=== PATIENT | female | born 1955 | race Caucasian/White ===

== ENCOUNTER 2018-02-18 12:53 | Day surgery (SDC) | payer MEDICARE ==
[2018-02-18] MEDS ORDERED: PROPOFOL 10 MG/ML VIAL IV ONE (12:54)
--- NOTE | 2018-02-19 13:20 | Operative Note ---
DATE OF SURGERY: 02/18/2018 OPERATION: COLONOSCOPY to the cecum with cold snare polypectomy x1 and cold biopsy forceps polypectomy x1. INDICATION: Colorectal cancer screening. Her last examination was 10 years ago. ANESTHESIA: Intravenous sedation was administered by the department of anesthesiology and included Diprivan titrated to effect. PROCEDURE: Following informed consent from this alert individual including a discussion of the risks and benefits of the procedure and an opportunity for the patient to ask questions, the patient was in the left lateral decubitus position. A digital rectal examination was performed. No abnormalities were noted. Following this, the Olympus [id number] video colonoscope was inserted into the rectum without resistance. The rectal mucosa had a normal appearance with normal folds and distensibility. The sigmoid colon had a few scattered diverticula noted. The colonoscope was advanced up through the bowel to the level of the cecum without much difficulty. Throughout the remainder of the bowel the mucosa appeared normal, the folds were normal, and the bowel was fairly well distensible. The cecum was defined by noting the appendiceal orifice and ileocecal valve. The colon preparation was good. Retroflexion in the cecum failed to demonstrate abnormalities. From the base of the cecum, the colonoscope was then withdrawn. At the base of the cecum, there was a sessile 5 mm polyp noted which was removed with cold snare polypectomy. No other changes were appreciated until the sigmoid colon was reached where a second 3 mm polyp was noted and removed with biopsy forceps. The rectum was endoscopic normal. Retroflexion in the rectum likewise was free from change. The endoscope was straightened and withdrawn. The patient tolerated the procedure well and was returned to the recovery area in stable condition. IMPRESSION: 1. A 5 mm sessile polyp at the base of the cecum removed with cold snare polypectomy. 2. A 3 mm sigmoid polyp removed with biopsy forceps. 3. Sigmoid diverticulosis. RECOMMENDATIONS: The patient was advised she should receive a copy of her pathology report at home in the next 2-3 weeks. If not, she was asked to call my office to review the results of testing today. Followup will also be with Dr. Carrillo. As always, thank you for allowing me to participate in the care of your patient. CC: Sandhya ARCHIBALD
== END 2018-02-18 16:15 | disposition home or self-care (01) ==
LOC: HOP 12:53
PROVIDERS: ATTEND Internal Medicine Gastroenterology
DX: Z12.11 Encounter for screening for malignant neoplasm of colon (principal); D12.5 Benign neoplasm of sigmoid colon; K57.90 Diverticulosis of intestine, part unspecified, without perforation or abscess without bleeding; I10 Essential (primary) hypertension; K21.9 Gastro-esophageal reflux disease without esophagitis; J44.9 Chronic obstructive pulmonary disease, unspecified; M06.9 Rheumatoid arthritis, unspecified

== ENCOUNTER 2018-08-08 19:29 | Emergency (ER) | payer MEDICARE ==
[2018-08-08 20:04] LABS: HEMATOCRIT 35.8 % (35.0-47.0); HEMOGLOBIN 11.4 gm/dl (11.6-16.0); MEAN CORPUSCULAR HGB CONC 31.8 g/dl (32-36); MEAN PLATELET VOLUME 10.5 fl (7.4-10.4); PLATELET COUNT 320 K/uL (130-400); RED BLOOD COUNT 3.73 M/uL (3.80-5.40); RED CELL DISTRIBUTION WIDTH 14.8 % (11.5-14.5); WHITE BLOOD COUNT W/O DIFF 5.1 K/uL (4.2-12.2)
[2018-08-08 20:05] LABS: MEAN CORPUSCULAR HEMOGLOBIN 30.5 pg (27-33)
--- NOTE | 2018-08-08 20:06 | Emergency Department Record ---
History of Present Illness - General Chief complaint: Weakness Stated complaint: WEAKNESS Time Seen by Provider: 08/08/18 19:49 Source: Patient Mode of Arrival: Ambulatory Limitations: No limitations - History of Present Illness Initial comments: pt has had weakness for 2 days effecting both arms. she has had a harder time gripping and has been dropping things. she has had no new problems walking or with her speech. she states she falls a lot but that is not new. she also started getting tingling in her left arm 3 hrs ago. she has no cp. she has RA. MD Complaint: Generalized weakness, Numbness -: Days(s) Location: L hand, R hand Severity: Moderate Severity scale (1-10): 5 Quality: Aching Consistency: Constant Improves with: None Worsens with: None Associated Symptoms: Denies other symptoms - [place] Coma Scale Eye Response: (4) Open spontaneously Motor Response: (6) Obeys commands Verbal Response: (5) Oriented Elizabeth Total: 15 - Symptoms of Stroke Symptoms of stroke: Muscle Weakness, Numbness - Related Data Home Medications Medication Instructions Recorded Confirmed Last Taken Naproxen [Naprosyn] 500 mg PO BID 08/08/18 08/08/18 Unknown Allergies Allergy/AdvReac Type Severity Reaction Status Date / Time Sulfa (Sulfonamide Allergy Mild HIVES Verified 06/22/16 18:38 Antibiotics) morphine AdvReac NAUSEA AND Verified 06/22/16 18:38 VOMITING Travel Screening - Travel/Exposure Within Last 30 Days Have you traveled within the last 30 days?: No Review of Systems Reviewed: No additional complaints except as noted below Constitutional: Reports: As per HPI. Denies: Chills, Fever, Malaise, Night sweats, Weakness, Weight change Eyes: Reports: As per HPI. Denies: Eye discharge, Eye pain, Photophobia, Vision change ENT: Reports: As per HPI. Denies: Congestion, Dental pain, Ear pain, Epistaxis , Hearing loss, Throat pain Respiratory: Reports: As per HPI. Denies: Cough, Dyspnea, Hemoptysis, Stridor, Wheezes Cardiovascular: Reports: As per HPI. Denies: Arrhythmia, Chest pain, Dyspnea on exertion, Edema, Murmurs, Orthopnea, Palpitations, Paroxysmal nocturnal dyspnea, Rheumatic Fever, Syncope Endocrine: Reports: As per HPI. Denies: Fatigue, Heat or cold intolerance, Polydipsia, Polyuria Gastrointestinal: Reports: As per HPI. Denies: Abdominal pain, Constipation, Diarrhea, Hematemesis, Hematochezia, Melena, Nausea, Vomiting Genitourinary: Reports: As per HPI. Denies: Abnormal menses, Discharge, Dyspareunia, Dysuria, Frequency, Hematuria, Incontinence, Retention, Urgency Musculoskeletal: Reports: As per HPI. Denies: Arthralgia, Back pain, Gout, Joint swelling, Myalgia, Neck pain Skin: Reports: As per HPI. Denies: Bruising, Change in color, Change in hair/ nails, Lesions, Pruritus, Rash Neurological: Reports: As per HPI, Numbness, Weakness. Denies: Abnormal gait, Confusion, Headache, Paresthesias, Seizure, Tingling, Tremors, Vertigo Psychiatric: Reports: As per HPI. Denies: Anxiety, Auditory hallucinations, Depression, Homicidal thoughts, Suicidal thoughts, Visual hallucinations Hematological/Lymphatic: Reports: As per HPI. Denies: Anemia, Blood Clots, Easy bleeding, Easy bruising, Swollen glands Past Medical History - SOCIAL HISTORY Smoking Status: Former smoker Alcohol Use: Occasional Drug Use: None - RESPIRATORY Hx Respiratory Disorders: Yes Hx COPD: Yes - CARDIOVASCULAR Hx Cardio Disorders: Yes Hx Hypertension: Yes - NEURO Hx Neuro Disorders: No - GI Hx GI Disorders: Yes Hx Diverticulitis: Yes Hx Reflux: Yes Hx Hiatal Hernia: Yes Hx of Polyps: Yes Comment:: diverticulosis - Hx Genitourinary Disorders: Yes Hx Bladder Problem: Yes (frequent at night) - ENDOCRINE Hx Endocrine Disorders: No - MUSCULOSKELETAL Hx Musculoskeletal Disorders: Yes Hx Arthritis: Yes (RA; knee) Hx Fibromyalgia: Yes Hx Osteoporosis: (osteopenia) Comment:: RA all joints - PSYCH Hx Psych Problems: Yes Hx Anxiety: Yes (improved) Hx Depression: Yes - HEMATOLOGY/ONCOLOGY Hx Hematology/Oncology Disorders: No Family Medical History Any Significant Family History?: Yes Hx Alcohol Use: Mother, Brother/Sister Hx Dementia: Mother Hx Diabetes: Mother Hx Heart Disease: Father Hx Stroke: Father *Stroke Comment: mini strokes Physical Exam - General General Appearance: Alert, Oriented x3, Cooperative, Mild distress - Head Head exam: Normal inspection - Eye Eye exam: Normal appearance, PERRL, EOMI Pupils: Normal accommodation - ENT ENT exam: Normal exam, Mucous membranes moist, Normal external ear exam, Normal orophraynx Ear exam: Normal external inspection. negative: External canal tenderness Nasal Exam: Normal inspection. negative: Discharge, Sinus tenderness Mouth exam: Normal external inspection, Tongue normal Teeth exam: Normal inspection. negative: Dental caries Throat exam: Normal inspection. negative: Tonsillar erythema, Tonsillar exudate - Neck Neck exam: Normal inspection, Full ROM. negative: Tenderness - Respiratory Respiratory exam: Normal lung sounds bilaterally. negative: Respiratory distress - Cardiovascular Cardiovascular Exam: Regular rate, Normal rhythm, Normal heart sounds - GI/Abdominal GI/Abdominal exam: Soft, Normal bowel sounds. negative: Tenderness - Rectal Rectal exam: Deferred - exam: Deferred - Extremities Extremities exam: Normal inspection, Full ROM, Normal capillary refill. negative: Tenderness - Back Back exam: Reports: Normal inspection, Full ROM. Denies: Muscle spasm, Rash noted, Tenderness - Neurological Neurological exam: Alert, Normal gait, Oriented X3, Reflexes normal - Psychiatric Psychiatric exam: Normal affect, Normal mood - Skin Skin exam: Dry, Intact, Normal color, Warm Course Vital Signs 08/08/18 19:41 Temperature 99.0 F Pulse Rate 82 Respiratory 20 Rate Blood Pressure 185/112 Pulse Ox 97 - Reevaluation(s) Reevaluation #1: 08/08/18 22:23 pt feels much better Medical Decision Making - Lab Data Result diagrams: 08/08/18 19:39 08/08/18 19:39 Disposition Disposition: Discharge Clinical Impression: Rheumatoid arthritis flare Disposition: Home, Self-Care Condition: (1) Good Instructions: Rheumatoid Arthritis (ED) Additional Instructions: follow up with family doctor tomorrow. return sooner if worse. rest Forms: Patient Portal Access Quality - Quality Measures Quality Measures: N/A - Blood Pressure Screening Does Patient Have Any of the Following: Active Dx of HTN Blood Pressure Classification: Hypertensive Reading Systolic Measurement: 185 Diastolic Measurement: 112 Screening for High Blood Pressure: Patient Exclusion, Hx of HTN [G9744]
[2018-08-08 20:18] LABS: BILIRUBIN,TOTAL < 0.20 mg/dL (0.2-1.0); BLOOD UREA NITROGEN 19 mg/dL (8-23); CREATININE 0.7 mg/dL (0.5-0.9); EST GLOMERULAR FILTRATION RATE > 60 mL/min
[2018-08-08 20:19] LABS: TOTAL PROTEIN 7.3 g/dL (6.6-8.7)
[2018-08-08 20:21] LABS: GLUCOSE,RANDOM 107 mg/dL (74-109)
[2018-08-08 20:23] LABS: ALB/GLOB RATIO 1.3 (1.1-1.8); ALBUMIN 4.1 g/dL (4.0-5.0); ALKALINE PHOSPHATASE 96 U/L (35-104); ALT/SGPT 13 U/L (<33); AST/SGOT 20 U/L (10.0-35.0)
[2018-08-08] MEDS ORDERED: METHYLPREDNISOLONE PF 125MG/VIAL IM ONE (21:24)
--- NOTE | 2018-08-09 10:20 | RADIOLOGY REPORT ---
DATE: 08/08/2018. EXAM: TWO-VIEW CHEST RADIOGRAPH. HISTORY: CHEST PAIN. TECHNIQUE: Two views of the chest. COMPARISON: Chest radiograph dated 10/23/2013. FINDINGS: The cardiomediastinal silhouette appears within normal size limits and is similar to the 2013 comparison. The lungs appear hyperinflated. No focal pulmonary consolidation. No pleural effusion or pneumothorax. Prominent thoracic kyphosis with a chronic, severe lower thoracic vertebral body compression fracture noted. IMPRESSION: THE LUNGS APPEAR HYPERINFLATED. NO ACUTE FOCAL PULMONARY ABNORMALITIES ARE DETECTED. JOB NUMBER: [id number] MTDD
--- NOTE | 2018-08-09 10:25 | CT SCAN REPORT ---
DATE: 08/08/2018. EXAM: NONCONTRAST CT OF THE HEAD. HISTORY: WEAKNESS. TECHNIQUE: Noncontrast CT of the head. COMPARISON: CT of the head dated 10/28/2010. FINDINGS: No midline shift, mass effect, or abnormal intra- or extra-axial fluid collection. No cerebral edema, focal mass, or intracranial hemorrhage detected. Periventricular and subcortical white matter hypoattenuation, increased from comparison. The ventricle sizes are within normal limits for the patient's age. No displaced calvarial fracture is detected. Partial opacification of the right ethmoid air cells and right maxillary sinus. IMPRESSION: 1. NO ACUTE INTRACRANIAL FINDINGS. 2. NONSPECIFIC PERIVENTRICULAR AND SUBCORTICAL WHITE MATTER HYPOATTENUATION MOST LIKELY REPRESENTS CHRONIC SMALL-VESSEL ISCHEMIC CHANGE AND HAS INCREASED SINCE 2010 CT COMPARISON. 3. RIGHT ETHMOID AIR CELL AND MAXILLARY SINUS DISEASE. JOB NUMBER: [id number] MTDD
== END 2018-08-08 22:43 | disposition home or self-care (01) ==
LOC: ER 19:29
DX: M06.842 Other specified rheumatoid arthritis, left hand (principal); M06.841 Other specified rheumatoid arthritis, right hand; R53.1 Weakness; R20.2 Paresthesia of skin; R07.9 Chest pain, unspecified; I10 Essential (primary) hypertension; J44.9 Chronic obstructive pulmonary disease, unspecified; Z87.891 Personal history of nicotine dependence
CPT/HCPCS: 70450; 71046; 80053; 84484; 85027; 93005; 93010; 96372; 99284; J2930

== ENCOUNTER 2019-05-26 12:01 | Day surgery (SDC) | payer MEDICARE ==
[2019-05-26] MEDS ORDERED: FENTANYL PF 100MCG/2ML VIAL IV ONE (12:02)
[2019-05-26] MEDS ORDERED: PROPOFOL 10 MG/ML VIAL IV ONE (12:02)
[2019-05-26] MEDS ORDERED: LIDOCAINE 2% MDV (20MG/ML) 20ML VIAL IV ONE (12:02)
--- NOTE | 2019-05-28 08:20 | Operative Note ---
OPERATION: ESOPHAGOGASTRODUODENOSCOPY with multiple biopsies. INDICATION: Iron deficiency anemia and weight loss. The patient reports that she has had a diminished appetite for the past 2 weeks. She skips breakfast and eats less during the day. She denies abdominal pain. Stool was positive for occult blood. She had a colonoscopy 1 year ago with adenomatous polyps noted. Upper endoscopy is performed at this time for further evaluation. She has a known history of hiatal hernia. She does take naproxen for pain. ANESTHESIA: Intravenous sedation was administered by the department of anesthesiology and included Diprivan titrated to effect. PROCEDURE: Following informed consent from this alert individual, including a discussion of the risks and benefits of the procedure and an opportunity for the patient to ask questions, the patient was in the left lateral decubitus position. The Olympus [id number] video endoscope was inserted into the esophagus without resistance. The proximal esophagus had a normal appearance with normal folds and distensibility. The mid esophagus likewise was free from changes. The distal esophageal segment demonstrated a smooth, well-defined squamocolumnar junction. There was a hiatal hernia noted which was moderate in size extending 3-4 cm in length. The subdiaphragmatic stomach was entered and found to be unremarkable except for some erythematous streak-like changes involving the gastric antrum. The pylorus was patent. The duodenal bulb, sweep and descending duodenum were examined in a serial fashion and found to be normal. Biopsies from the duodenum were obtained to rule out the remote possibility of celiac sprue. The endoscope was then drawn back into the stomach where retroflexion accomplished following air insufflation revealed a medium size hiatal hernia. The endoscope was then straightened. Multiple biopsies from the stomach were obtained to assess for Helicobacter pylori and check histology. The endoscope was then withdrawn back through an unremarkable-appearing esophagus and removed from the patient. Note that there was some technical difficulties with air insufflation toward the end of the procedure but as visualized, there is no bleeding or ulcerations noted throughout. RECOMMENDATION: The patient was advised to avoid naproxen at this time. Further recommendations may be forthcoming pending results of biopsy obtained today. Followup will be with Dr. Kam. If these tests prove unremarkable and the patient continues with iron deficiency, perhaps a capsule endoscopy would be of benefit. As always, thank you for allowing me to participate in the care of your patient. BARBARA
== END 2019-05-26 13:52 | disposition home or self-care (01) ==
LOC: HOP 12:01
PROVIDERS: ATTEND Internal Medicine Gastroenterology
DX: D50.9 Iron deficiency anemia, unspecified (principal); R63.4 Abnormal weight loss; R63.0 Anorexia; R19.5 Other fecal abnormalities; K21.0 Gastro-esophageal reflux disease with esophagitis; K44.9 Diaphragmatic hernia without obstruction or gangrene; K29.70 Gastritis, unspecified, without bleeding; I10 Essential (primary) hypertension; J44.9 Chronic obstructive pulmonary disease, unspecified; M06.9 Rheumatoid arthritis, unspecified
CPT/HCPCS: 43239; 00731; J3010

== ENCOUNTER 2019-09-09 08:00 | Day surgery (SDC) | payer MEDICARE ==
[~2019-09-09 08:00] MED LIST: CEFAZOLIN 2 Gram 2 GM/50 ML BAG IVPB ONE; FAMOTIDINE 20MG TABLET PO ONE; MECLIZINE 25 MG TABLET PO ONE; METOCLOPRAMIDE 10 MG TABLET PO ONE
[2019-09-09] MEDS ORDERED: MIDAZOLAM HCL 2MG/2ML VIAL IV ONE (08:01)
[2019-09-09] MEDS ORDERED: LIDOCAINE 2% MDV (20MG/ML) 20ML VIAL IV ONE (08:01)
[2019-09-09] MEDS ORDERED: PROPOFOL 10 MG/ML VIAL IV ONE (08:01)
[2019-09-09] MEDS ORDERED: DEXAMETHASONE 4 MG/ML 1ML VIAL IVP ONE (08:01)
[2019-09-09] MEDS ORDERED: ROPIVACAINE HCL (NAROPIN) /PF 5MG/ML 20ML VIAL IV ONE (08:01)
[2019-09-09 08:29] LABS: HEMATOCRIT 35.7 % (35.0-47.0)
[2019-09-09] MEDS ORDERED: RINGERS SOLUTION,LACTATED 1,000 ML IV ONE ×2 (08:40→11:30)
[2019-09-09] MEDS ORDERED: RINGERS SOLUTION,LACTATED 1,000 ML IV PRN (12:41)
[2019-09-09] MEDS ORDERED: TRAMADOL HCL 50 MG TABLET PO PRN ×2 (13:00)
[2019-09-09] MEDS ORDERED: SENNOSIDES/DOCUSATE SODIUM UD CAPSULE PO PRN (13:00)
[2019-09-09] MEDS ORDERED: AL HYDROX/MAG HYDROX 30ML UD PO PRN (13:00)
[2019-09-09] MEDS ORDERED: HYDROCODONE/APAP 5/325MG TABLET PO PRN ×2 (13:00)
[2019-09-09] MEDS ORDERED: DIPHENHYDRAMINE HCL 25 MG CAPSULE PO PRN (13:00)
[2019-09-09] MEDS ORDERED: OXYCODONE HCL/APAP 5MG/325MG TABLET PO PRN (13:00)
[2019-09-09] MEDS ORDERED: MAGNESIUM HYDROXIDE 30 ML UDC PO PRN (13:00)
[2019-09-09] MEDS ORDERED: NALOXONE 0.4 MG/1 ML VIAL IVP PRN (13:00)
[2019-09-09] MEDS ORDERED: ZOLPIDEM TARTRATE 5 MG TABLET PO PRN (13:00)
[2019-09-09] MEDS ORDERED: METOCLOPRAMIDE HCL 10 MG/2 ML VIAL IVP PRN (13:00)
[2019-09-09] MEDS ORDERED: ACETAMINOPHEN 325 MG TAB PO PRN (13:00)
[2019-09-09] MEDS ORDERED: ALBUTEROL HFA 8 GM INHALER INH PRN (13:08)
--- NOTE | 2019-09-09 13:27 | Operative Note ---
DATE OF SURGERY: 09/09/2019 SURGEON: Saturnino Cruz D.O. REFERRING PHYSICIAN: Hugh Wiggins M.D. PREOPERATIVE DIAGNOSIS: OSTEOARTHRITIS OF THE LEFT KNEE. POSTOPERATIVE DIAGNOSIS: OSTEOARTHRITIS OF THE LEFT KNEE. OPERATION: LEFT TOTAL KNEE ARTHROPLASTY. This 64-year-old female was taken to the Operating Room and placed in the supine position on the operating room table. A spinal anesthetic was administered, the left lower extremity was elevated, it was prepped with Hibiclens and draped in the usual sterile fashion. It was exsanguinated and the tourniquet was inflated to 300 mmHg. A longitudinal midline incision was made in the left knee dissecting down through the skin and subcutaneous tissue. Hemostasis was obtained with electrocautery. An arthrotomy incision was made to expose the distal femur and retractors were placed. Intracondylar drill holes were made with the intramedullary drill guide and the hamida was placed with a 5 degree valgus guide and a 9 mm cut was made in the distal femur. The sizing jig was affixed and a size 62.5 was seen to be the appropriate size, a 4-in-1 cutting block had been pinned in 3 degrees of external rotation and the appropriate cuts were made. We then directed our attention to the proximal tibia and an extramedullary alignment guide was used to cut the proximal tibia referencing a 10 mm cut off the lateral tibial plateau and the cutting block was pinned in the appropriate rotation, a 3 degree posterior slope cut was made and the wafer of bone was removed. Remnants of the menisci and osteophytes were removed from the posterior aspect of the joint. The tibia was sized to a size 71 and the stem punch was used. The wound was copiously irrigated with pulse lavage lactated Ringer's solution, soft tissue balancing was checked with the tissue tensioning device. The patella was cut and restored to anatomic height with a 34 x 7.8 mm trial, a 62.5 cruciate retaining femur trial, a 71 tibial baseplate, and a 12 mm bearing were placed as trial components. This gave us excellent range of motion with full extension and full flexion with no instability and then all trial components were removed and the wound copiously irrigated with pulse lavage lactated Ringer's solution. All bony surfaces were dried and all components were cemented. Initially the tibial baseplate was cemented into place, the tibial bearing was subsequently placed followed by the femoral component and the patellar component. Once the cement had hardened on all components the knee was again taken through range of motion with excellent stability of all components being identified. We then placed a drain through a separate stab incision, the arthrotomy incision was closed with #2 Vicryl, the subcutaneous tissue was closed with 0 Vicryl, the skin was stapled, sterile dressings applied, tourniquet released and the patient was taken to the Recovery Room in satisfactory condition. GROSS PATHOLOGY: This patient had severe full thickness medial compartment osteoarthritis and severe patellofemoral osteoarthritis as well with the lateral compartment showing Grade 2 changes. FINAL COMPONENTS INSERTED: [employer] size 62.5 cruciate retaining femoral component, 71 tibial baseplate, a 12 mm anterior stabilized E1 bearing and a 34 x 7.8 mm patella was used. JOB NUMBER: [id number] MTDD
[2019-09-09] MEDS: HYDROMORPHONE HCL 2 MG/ML VIAL IV PRN (15:04)
[2019-09-09] MEDS: ONDANSETRON HCL IV 4 MG/2 ML VIAL IVP PRN (15:04)
--- NOTE | 2019-09-09 15:44 | Rehab Evaluation ---
Patient Information - Patient Information Diagnosis: L knee DJD Ordered Treatment: PT Evaluate and Treat Status: Initial Evaluation Surgery: Yes (L knee TKA) Date of Surgery: 09/09/19 Past Medical/Surgical Hx: PAST MEDICAL/SURGICAL HISTORY Surgery to Affected Area? No Recent Surgery? Past Surgical History colonoscopy right knee replacement 2017 left elbow surgery due to broken bone tubal ligation PMH - Respiratory Hx Respiratory Disorders Yes Hx Asthma Yes: as a child Hx Chronic Obstructive Yes Pulmonary Disease (COPD) Hx Pneumonia Yes: A LONG TIME AGO PMH - Cardiovascular Hx Cardiovascular Disorders Yes Hx Hypertension Yes Exercise Tolerance Fair PMH - Neuro Hx Neurological Disorders No PMH - GI Hx Gastrointestinal Disorders Yes Hx Diverticulitis Yes Hx Gastroesophageal Reflux Yes Hx Hiatal Hernia Yes Hx Nausea/Vomiting Yes Hx Rectal Bleeding Yes: on rectal exam per pt Comment: diverticulosis PMH - Hx Genitourinary Disorders Yes Hx Age of Menopause 38 Hx Bladder Problem Yes: frequent at night PMH - Endocrine Hx Endocrine Disorders No PMH - Musculoskeletal Hx Musculoskeletal Disorders Yes Hx Arthritis Yes: RA; knee Hx Fibromyalgia Yes Hx Osteoporosis osteopenia Comment: RA all joints PMH - Psych Hx Psychiatric Problems Yes Hx Anxiety Yes: improved Hx Depression Yes PMH - Hematology/Oncology Hx Hematology/Oncology Yes Disorders Hx Anemia Yes Hx Bruising Yes: BRUISES EASILY Premorbid Status: Detail (The patient was independent with all mobility prior to surgery.) Social History: Detail (The patient lives with spouse in a 2 story house with 3 steps on the enterance and 2 railings. The patient will be living on the main level . The bathroom is equipped with: walk in shower, standard height toilet. Grab bar is present in the shower but not by the toilet. The patient has a front wheeled walker and a standard cane.) Precautions: [place], Fall, Other (WBAT on the L LE.) - Time With Patient Total Time Spent With Patient (Min): 30 Treatment Procedures: Detail (Initial Evaluation, low complexity.) Subjective Information - Subjective Information Per Patient (The patient had complaints of L knee pain level 7 using the 0-10 pain scale.) Objective Data - Mental Status Patient Orientation: Oriented x3 - Visual Perception Appears within normal limits for therapeutic activities - ROM Not within normal limits (The L knee AROM is limited s/p surgery. All other AROM is WNL.) - Strength/Tone Other (The patient's LE strength was not tested s/p surgery however is functional.) - Bed Mobility Independent (The patient was independent with supine to and from sit transfer.) - Transfers Independent (The patient was independent with sit to and from stand transfer.) - Balance Balance Sitting: Good Balance Standing: Good - Gait Detail (The patient ambulated with front wheeled walker a distance of 25 feet x 1 WBAT on L LE with supervision for safety. Pt. became nauseated and requested to return to bed.) Therapy Assessment - Therapy Assessment Detail (The patient was independent with bed mobility and transfers . Ambulation distance was limited secondary to symptoms of nausea. The patient will be seen for one to two sessions to complete inpt. PT goals.) Problem List - Problem List Physical Therapy Problem List: Detail (Decreased L LE AROM and L LE strength) Goals - Goals Physical Therapy Goals: 1) The patient will be independent with ambulation household distances WBAT on the L LE. 2) The patient will ambulate on stairs with supervision for safety using proper technique. 3) The patient will complete TKA HEP independently. Prognosis - Prognosis Good Plan - Plan Physical Therapy Plan: PT 1-2 sessions for gait training on levels and stairs and instruction in HEP.
[2019-09-09] MEDS ORDERED: FONDAPARINUX 2.5 MG/0.5 ML SYR SQ SCH (20:00)
[2019-09-09] MEDS: CEFAZOLIN 2 Gram 2 GM/50 ML BAG IVPB SCH (20:09)
[2019-09-09] MEDS: OXYCODONE HCL/APAP 5MG/325MG TABLET PO PRN (20:09)
[2019-09-09] MEDS: ASPIRIN 325 MG TAB ENTERIC-COATED PO SCH (22:09)
[2019-09-10] MEDS: OXYCODONE HCL/APAP 5MG/325MG TABLET PO PRN ×2 (02:06→08:02)
[2019-09-10] MEDS: CEFAZOLIN 2 Gram 2 GM/50 ML BAG IVPB SCH ×2 (02:07→11:29)
[2019-09-10] MEDS ORDERED: PANTOPRAZOLE SODIUM 40 MG TABLET PO SCH (07:00)
[2019-09-10] MEDS: ONDANSETRON HCL IV 4 MG/2 ML VIAL IVP PRN (08:40)
[2019-09-10] MEDS ORDERED: AMLODIPINE BESYLATE 5MG TAB PO SCH (10:00)
--- NOTE | 2019-09-10 10:40 | Physical Therapy Tx Note ---
Physical Therapy Tx Note - Treatment Note Tolerated: Fair Total Time Spent With Patient: 15 Physical Therapy Tx Note: Detail (Pt reports pain 7-8/10 and is motivated to go home. She states she just wants to walk at this time and wait for pain meds to do stairs and bed exercises. Pt ambulated approx 80 feet with contact gaurd assist with front wheeled walker and verbal cuing for length of step and how far to advance the walker WBAT on the L LE. Pt independent with bed mobility. Repositioned Pt in bed and reapplied ice pack and left with nursing staff. Will return in afternoon for exercises and stair training.) Physical Therapy Problem List: Detail (Decreased L LE AROM and L LE strength) Physical Therapy Goals: 1) The patient will be independent with ambulation household distances WBAT on the L LE. 2) The patient will ambulate on stairs with supervision for safety using proper technique. 3) The patient will complete TKA HEP independently. Physical Therapy Plan: PT 1-2 sessions for gait training on levels and stairs and instruction in HEP.
[2019-09-10] MEDS: HYDROMORPHONE HCL 2 MG/ML VIAL IV PRN (11:23)
[2019-09-10] MEDS: ASPIRIN 325 MG TAB ENTERIC-COATED PO SCH (11:30)
--- NOTE | 2019-09-10 11:57 | Rehab Evaluation ---
Patient Information - Patient Information Diagnosis: L knee DJD Ordered Treatment: OT Evaluate and Treat Status: Initial Evaluation Surgery: Yes (L knee TKA) Date of Surgery: 09/09/19 Past Medical/Surgical Hx: PAST MEDICAL/SURGICAL HISTORY Surgery to Affected Area? No Recent Surgery? Past Surgical History colonoscopy right knee replacement 2017 left elbow surgery due to broken bone tubal ligation PMH - Respiratory Hx Respiratory Disorders Yes Hx Asthma Yes: as a child Hx Chronic Obstructive Yes Pulmonary Disease (COPD) Hx Pneumonia Yes: A LONG TIME AGO PMH - Cardiovascular Hx Cardiovascular Disorders Yes Hx Hypertension Yes Exercise Tolerance Fair PMH - Neuro Hx Neurological Disorders No PMH - GI Hx Gastrointestinal Disorders Yes Hx Diverticulitis Yes Hx Gastroesophageal Reflux Yes Hx Hiatal Hernia Yes Hx Nausea/Vomiting Yes Hx Rectal Bleeding Yes: on rectal exam per pt Comment: diverticulosis PMH - Hx Genitourinary Disorders Yes Hx Age of Menopause 38 Hx Bladder Problem Yes: frequent at night PMH - Endocrine Hx Endocrine Disorders No PMH - Musculoskeletal Hx Musculoskeletal Disorders Yes Hx Arthritis Yes: RA; knee Hx Fibromyalgia Yes Hx Osteoporosis osteopenia Comment: RA all joints PMH - Psych Hx Psychiatric Problems Yes Hx Anxiety Yes: improved Hx Depression Yes PMH - Hematology/Oncology Hx Hematology/Oncology Yes Disorders Hx Anemia Yes Hx Bruising Yes: BRUISES EASILY Premorbid Status: Detail (The patient was independent with all mobility prior to surgery. She is typically responsible for home mgmt, meal prep and laundry but spouse will be completing these as needed.) Social History: Detail (The patient lives with spouse in a 2 story house with 3 steps at the entrance and 2 railings. The patient will be living on the main level . The bathroom is equipped with: walk in shower, standard height toilet. Grab bar is present in the shower but not by the toilet. The patient has a front wheeled walker and a standard cane and she will be getting a tub seat.) Precautions: [place], Fall, Other (WBAT on the L LE.) - Time With Patient Total Time Spent With Patient (Min): 35 Treatment Procedures: Detail (OT eval low complexity) Subjective Information - Subjective Information Per Patient, Other (spouse) Objective Data - Pain Pain Present: Yes (02/19) - Mental Status Patient Orientation: Oriented x3 - Visual Perception Appears within normal limits for therapeutic activities - ROM Within normal limits (Luis UE AROM WNL) - Strength/Tone Within normal limits (Luis UE strength WNL) - Coordination Appears within normal limits for therapeutic activities - Bed Mobility Independent (Ind with supine to sit) - Transfers Independent (Ind with sit to stand from EOB) - Balance Balance Sitting: Good Balance Standing: Good - Sensation Intact - Gait Detail (Pt ambulating in room with 2 wheeled walker and supervision) - ADL's/IADL's Detail (Pt educated and able to demonstrate learning of modified LE dressing techniques including doffing slipper socks and donning PJ bottoms and slip on shoes. Reviewed kitchen and shower safety and modifications, pt verbalized l earning.) Therapy Assessment - Therapy Assessment Detail (Pt is Ind with modified LE dressing techniques.) Problem List - Problem List Physical Therapy Problem List: Detail (Decreased L LE AROM and L LE strength) Occupational Therapy Problem List: Detail (No current IP PT problems identified.) Goals - Goals Physical Therapy Goals: 1) The patient will be independent with ambulation household distances WBAT on the L LE. 2) The patient will ambulate on stairs with supervision for safety using proper technique. 3) The patient will complete TKA HEP independently. Occupational Therapy Goals: No current IP OT goals identified. Prognosis - Prognosis Good Plan - Plan Physical Therapy Plan: PT 1-2 sessions for gait training on levels and stairs and instruction in HEP. Occupational Therapy Plan: Pt is discharged from IP OT at this time. Thank you for this referral.
--- NOTE | 2019-09-10 13:41 | Physical Therapy Tx Note ---
Physical Therapy Tx Note - Treatment Note Tolerated: Good Total Time Spent With Patient: 20 Physical Therapy Tx Note: Detail (The patient continues to have complaints of level 7/8 pain using 0-10 pain scale. The patient was independent with supine to and from sit transfer. The patient ambulated 36 feet x 1 independently with front wheeled walker WBAT on L LE. The patient ambulated on 3 steps with use of one railing and folded walker using proper technique with supervision for safety. The patient completed TKA HEP: seated heel slides, ankle pumps, quad sets, hamstring sets, gluteal sets and SLR. The patient has met all inpt. PT goals and is discharged from inpt. PT.) Physical Therapy Problem List: Detail (Decreased L LE AROM and L LE strength) Physical Therapy Goals: 1) The patient will be independent with ambulation household distances WBAT on the L LE. ( Goal Met). 2) The patient will ambulate on stairs with supervision for safety using proper technique.(Goal Met). 3) The patient will complete TKA HEP independently. (Goal Met) Physical Therapy Plan: Patient is discharged from inpt. PT and is to receive Home PT.
--- NOTE | 2019-09-11 09:16 | Discharge Summary ---
DATE OF ADMISSION: 09/09/2019 DATE OF DISCHARGE: 09/10/2019 ADMITTING DIAGNOSIS: OSTEOARTHRITIS OF THE LEFT KNEE. DISCHARGE DIAGNOSIS: OSTEOARTHRITIS OF THE LEFT KNEE. OPERATIVE PROCEDURE: LEFT TOTAL KNEE ARTHROPLASTY. This 64-year-old female was taken to the Operating Room for total knee arthroplasty on 09/09/2019. She tolerated the operative procedure well. A drain was placed and removed the first postoperative day. She was treated with physical therapy and cleared physical therapy on the first postoperative day and was ready for discharge. Pain was controlled. She will discharged with outpatient physical therapy. She was instructed to wear her RED hose during the day and remove them at night. She will take aspirin 325 mg daily for four weeks. She was given a prescription for Percocet 5/325 mg #40 one every six hours as necessary for pain and Tramadol 50 mg one to two every six hours as necessary for pain and she was given 60. Routine wound care instructions were given. She will follow-up in the clinic in two weeks. Should she have any problems prior to being seen she was instructed to call my office. JOB NUMBER: [id number] MTDD
== END 2019-09-10 15:28 | disposition home or self-care (01) ==
LOC: SUR 08:00 → MEDSURG 12:39 → SUR 09-10 15:28
PROVIDERS: ATTEND Orthopaedic Surgery
DX: M17.12 Unilateral primary osteoarthritis, left knee (principal); I10 Essential (primary) hypertension; M06.9 Rheumatoid arthritis, unspecified; K21.9 Gastro-esophageal reflux disease without esophagitis; J45.909 Unspecified asthma, uncomplicated
CPT/HCPCS: 27447; 01402; 64447; 85018; 85014; 94010; J2405 ×2; J1170 ×2; J0690 ×2; J1652; J2795; 76942; J7120